=== PATIENT | male | born 2000 | race Two or more races ===

== ENCOUNTER 2020-03-05 15:09 | Emergency (ER) | payer OTHER ==
[~2020-03-05] VITALS: Ht 170.2 cm; Wt 74.8 kg
[2020-03-05 15:13] VITALS: Ht 170.2 cm; Wt 74.8 kg
[2020-03-05 15:45] VITALS: BP 128/89
== END 2020-03-05 15:45 | disposition home or self-care (01) ==
LOC: ED 15:09
DX: S39.012A Strain of muscle, fascia and tendon of lower back, initial encounter (principal); E03.9 Hypothyroidism, unspecified; R42 Dizziness and giddiness; V49.49XA Driver injured in collision with other motor vehicles in traffic accident, initial encounter; Y93.I9 Activity, other involving external motion; Y92.413 State road as the place of occurrence of the external cause; Y99.8 Other external cause status